=== PATIENT | female | born 1990 | race Caucasian/White ===

== ENCOUNTER 2017-03-22 09:28 | Inpatient (IN) | payer BC, MEDICAID ==
[2017-03-22] VITALS (46 sets, daily range): BP systolic 100–177; BP diastolic 52–99; PULSE 67–126; TEMP 98.1–99.1
[~2017-03-22] VITALS: Ht 157.5 cm; Wt 83.2 kg
[~2017-03-22 09:28] MED LIST: PRENATAL1 TA1 PO
[2017-03-22 12:05] LABS: MEAN CELL VOLUME 81 fl (80.0-100.0); MEAN CORPUSCULAR HGB CONC 31 g/dl (33.0-37.0); MEAN PLATELET VOLUME 9.6 fl (7.4-10.4); PLATELET COUNT 349 K/mm3 (130-400); RED BLOOD COUNT 4.19 M/mm3 (4.10-5.30); WHITE BLOOD COUNT 10.2 K/mm3 (4.8-10.8)
[2017-03-22 12:06] LABS: HEMATOCRIT 33.9 % (37.0-47.0); HEMOGLOBIN 10.4 g/dl (12.5-16.0); MEAN CORPUSCULAR HEMOGLOBIN 25 pg (27.0-31.0)
[2017-03-22 12:07] LABS: ADD PATHOLOGY DIFF REVIEW NO
[2017-03-22 12:44] LABS: BAND 7 % (0-10); LYMPHOCYTE 26 % (20.0-51.0); NEUTROPHILS 67 % (42.0-75.2); PLATELET ESTIMATE NORMAL (NORMAL); TOTAL CELLS COUNTED 100
[2017-03-23 04:00] VITALS: BP 115/75; PULSE 98; TEMP 97.7
[2017-03-23 08:00] VITALS: BP 124/84; PULSE 88; TEMP 97.6
[2017-03-23] MEDS ORDERED: IBU800 M1 PO (08:45)
[2017-03-23] MEDS ORDERED: PERCOCET 325 MG1 TA2 PO (08:45)
[2017-03-23 19:00] VITALS: BP 129/78; PULSE 80; TEMP 97.4
[2017-03-24 07:30] VITALS: BP 134/76; PULSE 79; TEMP 98
== END 2017-03-24 12:50 | disposition home or self-care (01) | DRG 775 ==
LOC: LDRO 09:28 → OB 09:35 → LDR 09:35 → OB 22:20
PROVIDERS: Obstetrics & Gynecology
PROC: 10D07Z6 Extraction of Products of Conception, Vacuum, Via Natural or Artificial Opening (ICD-10-PCS; principal; 2017-03-22)
DX: O48.0 Post-term pregnancy (principal); O76 Abnormality in fetal heart rate and rhythm complicating labor and delivery; Z3A.40 40 weeks gestation of pregnancy; Z37.0 Single live birth
CPT/HCPCS: J2405; J2540; J2590; J2795; J7120

== ENCOUNTER 2018-05-30 13:48 | Emergency (ER) | payer MEDICAID ==
[~2018-05-30] VITALS: Ht 154.9 cm; Wt 57.7 kg
[~2018-05-30 13:48] MED LIST changes: +IBU800 M1 PO; +PERCOCET 325 MG1 TA2 PO
[2018-05-30 13:50] VITALS: TEMP 98
[2018-05-30] MEDS ORDERED: DIFLUCAN150 MG PO (14:23)
[2018-05-30] MEDS ORDERED: FLAGYL500 MG PO (14:25)
[2018-05-30] MEDS ORDERED: BIOTIN5000 MCG PO (14:27)
[2018-05-30 17:46] VITALS: BP 171/113; PULSE 110
== END 2018-05-30 18:00 | disposition home or self-care (01) ==
LOC: COL.ER 13:48
DX: S52.502A Unspecified fracture of the lower end of left radius, initial encounter for closed fracture (principal); S52.602A Unspecified fracture of lower end of left ulna, initial encounter for closed fracture; Z87.891 Personal history of nicotine dependence; W00.0XXA Fall on same level due to ice and snow, initial encounter; Y92.59 Other trade areas as the place of occurrence of the external cause
CPT/HCPCS: J1170; J2270; J2704; J3010; J7030; Q4021

== ENCOUNTER → 2018-06-07 | Outpatient (CLI) | payer MEDICAID ==
[~2018-06-07] MED LIST changes: +BIOTIN5000 MCG PO; +DIFLUCAN150 MG PO; +FLAGYL500 MG PO
[2018-06-07 16:45] LABS: CALCIUM 8.9 mg/dL (8.4-10.2); CREATININE, serum 0.53 mg/dL (0.52-1.25); POTASSIUM 4.5 mmol/L (3.4-5.0)
== END ==
LOC: ZCOL.LAB 16:02
PROVIDERS: Family Medicine
DX: I10 Essential (primary) hypertension (principal)

== ENCOUNTER → 2018-06-14 | Outpatient (CLI) | payer MEDICAID ==
[2018-06-14 17:03] LABS: CALCIUM 8.9 mg/dL (8.4-10.2); CREATININE, serum 0.55 mg/dL (0.52-1.25); POTASSIUM 3.8 mmol/L (3.4-5.0)
== END ==
LOC: ZCOL.LAB 16:42
PROVIDERS: Family Medicine
DX: I10 Essential (primary) hypertension (principal)

== ENCOUNTER 2018-08-07 13:00 | Outpatient (RCR) | payer MEDICAID | END 2018-08-15 14:18 | disposition home or self-care (01) | LOC: MKS.ESL.OT 13:00 | DX: S52.502D Unspecified fracture of the lower end of left radius, subsequent encounter for closed fracture with routine healing (principal) ==

== ENCOUNTER → 2019-03-07 | Outpatient (CLI) | payer MEDICAID ==
[2019-03-07 17:28] LABS: BILIRUBIN,TOTAL 0.3 mg/dL (0.0-1.0); CALCIUM 9.3 mg/dL (8.4-10.2)
[2019-03-07 17:40] LABS: ALBUMIN 4.6 gm/dL (3.5-5.0); CREATININE, serum 0.71 (0.52-1.25); TOTAL PROTEIN 7.3 gm/dL (6.4-8.2)
== END ==
LOC: COL.LAB 16:24
PROVIDERS: Family Medicine
DX: I10 Essential (primary) hypertension (principal); R10.11 Right upper quadrant pain

== ENCOUNTER → 2019-03-14 | Outpatient (CLI) | payer MEDICAID | LOC: COL.RAD 07:30 | DX: R10.11 Right upper quadrant pain (principal) ==

== ENCOUNTER 2021-04-25 16:09 | Emergency (ER) | payer MEDICAID ==
[~2021-04-25] VITALS: Ht 154.9 cm; Wt 60.0 kg
[2021-04-25 16:24] VITALS: BP 135/88; TEMP 98
[2021-04-25] MEDS ORDERED: NORCO 325 MG-51 TAB PO (18:00)
[2021-04-25 18:20] VITALS: PULSE 99
== END 2021-04-25 18:20 | disposition home or self-care (01) ==
LOC: COL.ER 16:09
DX: G89.18 Other acute postprocedural pain (principal); M79.642 Pain in left hand; I10 Essential (primary) hypertension; F17.200 Nicotine dependence, unspecified, uncomplicated; Z98.890 Other specified postprocedural states

== ENCOUNTER → 2022-01-26 | Outpatient (CLI) | payer MEDICAID ==
[~2022-01-26] MED LIST changes: +NORCO 325 MG-51 TAB PO
== END ==
LOC: MC.RAD 10:37
DX: N64.4 Mastodynia (principal)